=== PATIENT | female | born 1950 | race Caucasian/White ===

== ENCOUNTER 2018-04-24 19:28 | Observation (INO) | payer MEDICARE ==
[2018-04-24] MEDS ORDERED: Ketorolac Tromethamine 30 MG/ML VIAL ONE (20:42)
--- NOTE | 2018-04-24 20:59 | RAD ---
RIGHT WRIST TWO VIEWS: History: Fall with wrist pain. FINDINGS: The bones are demineralized. There is an obliquely oriented intraarticular fracture of the distal rad ius. The fracture is dorsally angulated and depressed. There is an essentially nondisplaced ulnar sty loid fracture. Also noted is some subtle deformity to the ulnar neck. IMPRESSION: Comminuted, dorsally angulated and impacted distal radial fracture. POS: [facility]
[2018-04-24] MEDS ORDERED: Acetaminophen 325 MG TAB PO PRN (22:21)
[2018-04-24] MEDS ORDERED: HYDROcodone/Acetaminophen 5/325 mg Tablet PO PRN ×2 (22:21)
[2018-04-24] MEDS ORDERED: Ondansetron ODT 4 MG TAB SL PRN (22:21)
[2018-04-24] MEDS ORDERED: Ondansetron HCl/PF 4 MG/2 ML Vial IVP PRN (22:21)
[2018-04-24] MEDS: Morphine 2 MG/ML SYRINGE SLOW IVP PRN (23:00)
[2018-04-25] MEDS: Morphine 2 MG/ML SYRINGE SLOW IVP PRN ×2 (01:04→03:29)
[2018-04-25] MEDS: Sodium Chloride 0.9% 1,000 ML IV SCH ×2 (01:05→16:34)
[2018-04-25 03:06] VITALS: BMI 33.1
[2018-04-25] MEDS ORDERED: Atenolol 25 MG TAB PO SCH (11:15)
[2018-04-25] MEDS ORDERED: Clindamycin/D5W 900 MG in Premix Bag 1 BAG IVPB SCH (11:15)
[2018-04-25] MEDS ORDERED: Clindamycin/D5W 900 mg/50 ml Premix Bag ONE (11:36)
[2018-04-25 12:29] LABS: Anion Gap 13 mmol/L (10-20); BUN (Urea Nitrogen) 19 mg/dL (9.8-20.1); Calc. Creatinine Clearance 84 mL/min (70-130); Calcium 8.7 mg/dL (7.8-10.44); Carbon Dioxide 22 mmol/L (23-31); Chloride 108 mmol/L (98-107); Estimated GFR-MDRD 66; Glucose 89 mg/dL (80-115); Potassium 3.8 mmol/L (3.5-5.1); Sodium 139 mmol/L (136-145)
[2018-04-25] MEDS ORDERED: Midazolam HCl 2 mg/2 ml Vial ONE ×2 (12:30→12:31)
[2018-04-25] MEDS ORDERED: Fentanyl 100 MCG/2 ML VIAL ONE ×3 (12:30→12:31)
[2018-04-25] MEDS ORDERED: Neomycin-Polymyxin 1 ML AMP ONE (12:41)
--- NOTE | 2018-04-25 15:22 | RAD ---
RIGHT WRIST THREE VIEWS: HISTORY: Distal radius fracture. COMPARISON: Radiographs from 04/24/2018. FINDINGS: Satisfactory postoperative appearance of intraarticular distal radius fracture. FLUOROSCOPY TIME: 27.9 seconds. IMPRESSION: Satisfactory postoperative appearance. POS: [facility]
[2018-04-25] MEDS ORDERED: Bupivacaine HCl 0.5%/Epinephrine 1:200,000/PF 30 ml Vial ONE (16:22)
[2018-04-25] MEDS ORDERED: Lidocaine 1% PF 5 ML VIAL ONE (17:13)
[2018-04-25] MEDS ORDERED: PHENYLEPHRINE-NS 100 MCG/ML 10 ML SYRINGE ONE (17:13)
[2018-04-25] MEDS ORDERED: Ondansetron HCl/PF 4 MG/2 ML Vial ONE (17:13)
[2018-04-25] MEDS ORDERED: PROPOFOL 200 MG/20 ML VIAL ONE (17:13)
[2018-04-25] MEDS ORDERED: ePHEDrine/0.9% NaCl/PF SYRINGE 50 mg/10 ml ONE (17:13)
--- NOTE | 2018-04-25 17:28 | OP ---
DATE OF PROCEDURE: 04/25/2018 PREOPERATIVE DIAGNOSIS: Severely comminuted intra-articular fracture of the right distal radius. POSTOPERATIVE DIAGNOSIS: Severely comminuted intraarticular fracture of the right distal radius. PROCEDURE: Open reduction and internal fixation of right distal radius. SURGEON: Mamadou Grace M.D. ANESTHESIA: General. TECHNIQUE: The patient was given preoperative IV antibiotics. She had a block performed at supracla vicular area. The patient was taken to the operating room and placed in supine position. Satisfacto ry general anesthesia was performed. The right upper extremity was sterilely prepped and draped in t he usual fashion. After exsanguination, tourniquet at the right arm was raised to 250 mmHg. A longi tudinal incision was made on the volar aspect of the wrist radial to the midline. The flexure carpi radialis tendon was identified and retracted out of the way. Periosteal elevation was performed on t he distal radius. The fractures were manipulated and held reduced with bone clamps and this was veri fied with C-arm, AP, lateral and multiple oblique views. The distal radius was then internally fixed using a 3-hole [employer] volar plate using a 2.7 cortical screw in the shaft and 2.4 locking screws in the distal aspect of the radius through the different intra-articular fragments and then additional 2.7 locking screw 2 more in the shaft. Again, this was all performed under fluoroscopic visualizatio n using the C-arm which showed good reduction of all the fractures and good placement of the plate an d screws. The wound was then copiously irrigated with antibiotic solution and then closed using 2-0 Vicryl for the fat and subcutaneous tissue, and skin was closed with 3-0 Rapide. A sterile dressing was applied along with a wrist immobilizer. The tourniquet was released. The patient was awakened, extubated, and transferred to the recovery room in stable condition. ESTIMATED BLOOD LOSS: Minimal. COMPLICATIONS: None. TOURNIQUET TIME: 55 minutes.
[2018-04-25 17:33] VITALS: BP 112/70; TEMP 98
[2018-04-26] MEDS ORDERED: Atenolol 25 MG TAB PO SCH (09:00)
--- NOTE | 2018-04-26 09:38 | EKG ---
Test Reason : PREOP Blood Pressure : / mmHG Vent. Rate : 062 BPM Atrial Rate : 062 BPM P-R Int : 168 ms QRS Dur : 086 ms QT Int : 456 ms P-R-T Axes : 030 -15 002 degrees QTc Int : 462 ms Normal sinus rhythm Normal ECG No previous ECGs available Confirmed by GIL GRAY ([id number]) on 04/26/2018 9:38:37 AM Referred By: FARHANA Confirmed By:GIL GRAY
== END 2018-04-25 18:00 | disposition home or self-care (01) ==
LOC: ERS 19:28 → SURG B 20:05
PROVIDERS: ADMIT Orthopaedic Surgery; ATTEND Orthopaedic Surgery
PROC: 0PSH04Z Reposition Right Radius with Internal Fixation Device, Open Approach (ICD-10-PCS; principal; 2018-04-25)
DX: S52.571A Other intraarticular fracture of lower end of right radius, initial encounter for closed fracture (principal); S52.611A Displaced fracture of right ulna styloid process, initial encounter for closed fracture; I10 Essential (primary) hypertension; Z79.1 Long term (current) use of non-steroidal anti-inflammatories (NSAID); Z79.899 Other long term (current) drug therapy; Z88.0 Allergy status to penicillin; Z88.5 Allergy status to narcotic agent; W19.XXXA Unspecified fall, initial encounter
CPT/HCPCS: 25608; 29125; 73100; 73110; 76001; 80048; 93005; 96361; 96374; 96375; 96376 ×2; 99284; C1713 ×3; G0378; 36415; 93010; J0670; J1885; J2001; J2250; J2270; J2405; J2704; J3010; J3490

== ENCOUNTER 2019-09-26 12:36 | Outpatient (CLI) | payer MEDICARE ==
--- NOTE | 2019-10-10 16:18 | ULT ---
LOWER EXTREMITY ARTERIAL EVALUATION USING DOPPLER WAVEFORM ANALYSIS AND SEGMENTAL LIMB PRESSURES 09/26/19 Examination of the right leg reveals mild abnormality of the femoral waveform and popliteal waveform with more significant waveform abnormalities distally. Ankle-arm index however, calculates to 1.03. T oe-brachial index is diminished at 0.58. Left lower extremity demonstrates an abnormal waveform at the femoral level. Popliteal and posterior tibial waveforms are slightly better with an ankle-arm index of 0.97 and a toe-brachial index of 0.76 . IMPRESSION: This study suggests some iliac disease left greater than right. It is also suggestive of some tibial disease on the right. Ankle-arm index is preserved at rest. If patient's symptoms are suggestive of v ascular claudication, then further evaluation with CT angiography could be undertaken.
== END 2019-09-26 12:37 | disposition home or self-care (01) ==
LOC: ULT 12:36
PROVIDERS: ATTEND Podiatrist Foot & Ankle Surgery
DX: I99.8 Other disorder of circulatory system (principal); I73.9 Peripheral vascular disease, unspecified
CPT/HCPCS: 93922